=== PATIENT | male | born 1960 | race Caucasian/White ===

== ENCOUNTER 2018-05-16 16:58 | Inpatient (IN) | payer MEDICAID ==
[~2018-05-16] VITALS: Ht 172.7 cm; Wt 74.4 kg
[2018-05-16] MEDS ORDERED: BICT1TAB PO (17:29)
[2018-05-16] MEDS ORDERED: VITAD1000 PO (17:29)
[2018-05-16] MEDS ORDERED: MULT-1272 PO (17:29)
[2018-05-16] MEDS ORDERED: HYDR25TA PO (17:29)
[2018-05-16] MEDS ORDERED: SILD25 PO (17:29)
[2018-05-16] MEDS ORDERED: TRAZ-219 PO (17:29)
[2018-05-16 18:03] LABS: BASOPHILS % (AUTO) 0.9 % (0.0-2.0); EOSINOPHILS % (AUTO) 1.7 % (1.0-6.0); HEMATOCRIT 41.7 % (41-53); HEMOGLOBIN 14.2 g/dL (13.5-17.5); LYMPHOCYTES # (AUTO) 2.2 K/uL (1.0-4.8); LYMPHOCYTES % (AUTO) 46.6 % (22.0-44.0); MEAN CORPUSCULAR VOLUME 100 fL (80-100); MONOCYTES # (AUTO) 0.5 K/uL (0.1-1.0); MONOCYTES % (AUTO) 10.9 % (2.0-9.0); NEUTROPHILS # (AUTO) 1.9 K/uL (1.8-7.7); NEUTROPHILS % (AUTO) 39.9 % (40.0-70.0); PLATELET COUNT (AUTO) 263 K/uL (150-450); RED BLOOD CELL COUNT(AUTO) 4.17 MIL/uL (4.50-5.90); RED CELL DISTRIBUTION WIDTH 12.3 % (11.5-14.5)
[2018-05-16 18:11] LABS: ANION GAP 6 mmol/L (8-16); CALCIUM, TOTAL 8.8 mg/dL (8.8-10.5); CARBON DIOXIDE 32 mmol/L (22-29); CHLORIDE 101 mmol/L (98-107); CREATININE 0.84 mg/dL (0.60-1.30); GLOMERULAR FILTR. RATE CALC > 60 mL/min (>60); GLUCOSE,RANDOM 84 mg/dL (70-110); POTASSIUM 4.2 mmol/L (3.5-5.1); SODIUM SERUM 139 mmol/L (136-145); UREA NITROGEN, BLOOD 11 mg/dL (7-18)
[2018-05-16 18:16] LABS: ALANINE AMINOTRANSFERASE 26 U/L (12-78); ALBUMIN 3.7 g/dL (3.4-5.0); ALKALINE PHOSPHATASE 79 U/L (46-116); ASPARTATE AMINOTRANSFERASE 28 U/L (15-37); BILIRUBIN,TOTAL 0.4 mg/dL (0.1-1.0); TOTAL PROTEIN, SERUM 8.3 g/dL (6.4-8.2)
[2018-05-16] MEDS ORDERED: HALOPERIDOL 5 MG TABLET PO ONE (19:45)
[2018-05-16] MEDS ORDERED: HALOPERIDOL 5 MG TABLET PO PRN (19:45)
[2018-05-16] MEDS ORDERED: LORazepam 2 MG TABLET PO ONE (19:45)
[2018-05-17] VITALS: BP 123/66
[2018-05-17] MEDS ORDERED: PNEUMOCOCCAL VACCINE POLYVALENT 0.5 ML VIAL [PPSV23] IM ONE (02:00)
[2018-05-17] MEDS ORDERED: NICOTINE 14 MG/24 HOUR PATCH TD PRN (07:00)
[2018-05-17] MEDS ORDERED: MAGNESIUM HYDROXIDE SUSPENSION 30 ML UDCUP PO PRN (07:00)
[2018-05-17] MEDS ORDERED: PETROLATUM,WHITE 71 GM JELLY TP PRN (07:00)
[2018-05-17] MEDS ORDERED: ALBUTEROL SULFATE HFA 90 MCG/PUFF 8 GM INHALER IH PRN (07:00)
[2018-05-17] MEDS ORDERED: GuaiFENesin/D-METHORPHAN [SUGAR-FREE] 200-20MG/10 ML SYRUP UDCUP PO PRN (07:00)
[2018-05-17] MEDS ORDERED: DOCUSATE SODIUM 100 MG CAPSULE PO PRN (07:00)
[2018-05-17] MEDS ORDERED: ONDANSETRON HCL 4 MG TABLET PO PRN (07:00)
[2018-05-17] MEDS ORDERED: ACETAMINOPHEN 325 MG TABLET PO PRN (07:00)
[2018-05-17] MEDS ORDERED: LOPERAMIDE HCL 2 MG CAPSULE PO PRN (07:00)
[2018-05-17] MEDS ORDERED: CloNIDine HCL 0.1 MG TABLET PO PRN (07:00)
[2018-05-17] MEDS ORDERED: MAG HYDROX/AL HYDROX/SIMETH ES 30 ML SUSPENSION UDCUP PO PRN (07:00)
[2018-05-17] MEDS ORDERED: IBUPROFEN 400 MG TABLET PO PRN (07:00)
[2018-05-17] MEDS ORDERED: SILDENAFIL CITRATE 25 MG TABLET PO PRN (07:15)
[2018-05-17 08:26] VITALS: BP 155/98
[2018-05-17] MEDS: LORazepam 2 MG TABLET PO PRN ×2 (08:34→17:05)
[2018-05-17] MEDS: TraZODone HCL 50 MG TABLET PO SCH (08:44)
[2018-05-17] MEDS: HYDROCHLOROTHIAZIDE 25 MG TABLET PO SCH (08:44)
[2018-05-17] MEDS: CHOLECALCIFEROL (VIT D3) 1,000 UNITS TABLET PO SCH (08:44)
[2018-05-17] MEDS: MULTIVITAMINS WITH MINERALS, THERAPEUTIC TABLET PO SCH (08:45)
[2018-05-17 09:19] LABS: BASOPHILS % (AUTO) 1.1 % (0.0-2.0); EOSINOPHILS % (AUTO) 2.3 % (1.0-6.0); HEMATOCRIT 42.4 % (41-53); HEMOGLOBIN 14.4 g/dL (13.5-17.5); LYMPHOCYTES # (AUTO) 1.7 K/uL (1.0-4.8); LYMPHOCYTES % (AUTO) 51.6 % (22.0-44.0); MEAN CORPUSCULAR HEMOGLOBIN 34.4 pg (26.0-34.0); MEAN CORPUSCULAR HGB CONC 33.9 G/dL (31.0-37.0); MEAN CORPUSCULAR VOLUME 102 fL (80-100); MONOCYTES # (AUTO) 0.4 K/uL (0.1-1.0); MONOCYTES % (AUTO) 13.4 % (2.0-9.0); NEUTROPHILS % (AUTO) 31.6 % (40.0-70.0); PLATELET COUNT (AUTO) 257 K/uL (150-450); RED BLOOD CELL COUNT(AUTO) 4.18 MIL/uL (4.50-5.90); RED CELL DISTRIBUTION WIDTH 12.3 % (11.5-14.5)
[2018-05-17 09:38] LABS: HEMOGLOBIN A1C 4.6 % (4.5-6.2)
[2018-05-17 09:41] LABS: ALANINE AMINOTRANSFERASE 23 U/L (12-78); ALBUMIN 3.3 g/dL (3.4-5.0); ALKALINE PHOSPHATASE 72 U/L (46-116); ANION GAP 6 mmol/L (8-16); ASPARTATE AMINOTRANSFERASE 23 U/L (15-37); BILIRUBIN,TOTAL 0.4 mg/dL (0.1-1.0); CALCIUM, TOTAL 8.4 mg/dL (8.8-10.5); CARBON DIOXIDE 29 mmol/L (22-29); CHLORIDE 103 mmol/L (98-107); CHOL/HDL RATIO 2.6 (4.2-7.3); CHOLESTEROL 176 mg/dL (131-200); CREATININE 0.84 mg/dL (0.60-1.30); GLOMERULAR FILTR. RATE CALC > 60 mL/min (>60); GLUCOSE,RANDOM 80 mg/dL (70-110); HDL CHOLESTEROL 67 mg/dL (40-60); LDL CHOL (CALC.) 98 mg/dL (0-130); SODIUM SERUM 138 mmol/L (136-145); THYROID STIMULATING HORMONE 0.92 uIU/mL (0.36-3.74); TOTAL PROTEIN, SERUM 7.2 g/dL (6.4-8.2); TRIGLYCERIDES 53 mg/dL (15-150); UREA NITROGEN, BLOOD 10 mg/dL (7-18)
[2018-05-17 09:48] LABS: VALPROIC ACID < 3 mcg/mL (50-100)
[2018-05-17 16:00] VITALS: BP 107/63
[2018-05-17] MEDS: ZIPRASIDONE HCL 40 MG CAPSULE PO SCH (17:05)
[2018-05-18] MEDS: ZIPRASIDONE HCL 40 MG CAPSULE PO SCH ×2 (06:24→17:05)
[2018-05-18 06:28] VITALS: BP 126/86
[2018-05-18 08:02] VITALS: BP 124/79
[2018-05-18] MEDS: CHOLECALCIFEROL (VIT D3) 1,000 UNITS TABLET PO SCH (08:17)
[2018-05-18] MEDS: HYDROCHLOROTHIAZIDE 25 MG TABLET PO SCH (08:17)
[2018-05-18] MEDS: MULTIVITAMINS WITH MINERALS, THERAPEUTIC TABLET PO SCH (08:17)
[2018-05-18] MEDS: TraZODone HCL 50 MG TABLET PO SCH (08:17)
[2018-05-18] MEDS ORDERED: VENLAFAXINE HCL 75 MG ER CAPSULE PO ONE (09:00)
[2018-05-18 16:00] VITALS: BP 135/85
[2018-05-19 06:16] VITALS: BP 132/83
[2018-05-19] MEDS: ZIPRASIDONE HCL 40 MG CAPSULE PO SCH (06:24)
[2018-05-19] MEDS: TraZODone HCL 50 MG TABLET PO SCH (08:03)
[2018-05-19] MEDS: HYDROCHLOROTHIAZIDE 25 MG TABLET PO SCH (08:03)
[2018-05-19] MEDS: CHOLECALCIFEROL (VIT D3) 1,000 UNITS TABLET PO SCH (08:03)
[2018-05-19] MEDS: MULTIVITAMINS WITH MINERALS, THERAPEUTIC TABLET PO SCH (08:03)
[2018-05-19 08:39] VITALS: BP 137/85
[2018-05-19] MEDS: [UNRECOGNIZED DRUG - OTHER] PO SCH (11:18)
[2018-05-19] MEDS: VENLAFAXINE HCL 75 MG ER CAPSULE PO SCH (11:32)
[2018-05-19 16:24] VITALS: BP 129/93
[2018-05-19] MEDS ORDERED: ZIPRASIDONE HCL 60 MG CAPSULE PO SCH (17:00)
[2018-05-19] MEDS: LORazepam 2 MG TABLET PO PRN (21:26)
[2018-05-20 01:00] VITALS: BP 124/89
[2018-05-20] MEDS ORDERED: ZIPRASIDONE HCL 20 MG CAPSULE PO SCH (07:00)
[2018-05-20 08:01] VITALS: BP 121/72
[2018-05-20] MEDS: MULTIVITAMINS WITH MINERALS, THERAPEUTIC TABLET PO SCH (08:16)
[2018-05-20] MEDS: HYDROCHLOROTHIAZIDE 25 MG TABLET PO SCH (08:16)
[2018-05-20] MEDS: VENLAFAXINE HCL 75 MG ER CAPSULE PO SCH (08:16)
[2018-05-20] MEDS: [UNRECOGNIZED DRUG - OTHER] PO SCH (08:16)
[2018-05-20] MEDS: FOLIC ACID 1 MG TABLET PO SCH (08:16)
[2018-05-20] MEDS: CHOLECALCIFEROL (VIT D3) 1,000 UNITS TABLET PO SCH (08:16)
[2018-05-20] MEDS: TraZODone HCL 50 MG TABLET PO SCH (08:17)
[2018-05-20 16:31] VITALS: BP 140/87
[2018-05-20] MEDS: ZIPRASIDONE HCL 60 MG CAPSULE PO SCH (16:42)
[2018-05-21 05:34] VITALS: BP 135/96
[2018-05-21] MEDS: ZIPRASIDONE HCL 60 MG CAPSULE PO SCH ×2 (06:26→16:45)
[2018-05-21 08:02] VITALS: BP 132/89
[2018-05-21] MEDS: TraZODone HCL 50 MG TABLET PO SCH (09:00)
[2018-05-21] MEDS: [UNRECOGNIZED DRUG - OTHER] PO SCH (09:09)
[2018-05-21] MEDS: MULTIVITAMINS WITH MINERALS, THERAPEUTIC TABLET PO SCH (09:09)
[2018-05-21] MEDS: HYDROCHLOROTHIAZIDE 25 MG TABLET PO SCH (09:09)
[2018-05-21] MEDS: CHOLECALCIFEROL (VIT D3) 1,000 UNITS TABLET PO SCH (09:09)
[2018-05-21] MEDS: VENLAFAXINE HCL 75 MG ER CAPSULE PO SCH (09:09)
[2018-05-21] MEDS: FOLIC ACID 1 MG TABLET PO SCH (09:09)
[2018-05-21 16:00] VITALS: BP 140/84
[2018-05-21] MEDS: ZOLPIDEM TARTRATE 10 MG TABLET PO PRN (21:18)
[2018-05-22] MEDS: LORazepam 2 MG TABLET PO PRN ×2 (03:48→17:13)
[2018-05-22 03:51] VITALS: BP 171/101
[2018-05-22 03:52] VITALS: BP 150/107
[2018-05-22 04:45] VITALS: BP 127/84
[2018-05-22] MEDS: ZIPRASIDONE HCL 60 MG CAPSULE PO SCH ×2 (06:39→17:13)
[2018-05-22] MEDS: TraZODone HCL 50 MG TABLET PO SCH (08:10)
[2018-05-22] MEDS: CHOLECALCIFEROL (VIT D3) 1,000 UNITS TABLET PO SCH (08:10)
[2018-05-22] MEDS: [UNRECOGNIZED DRUG - OTHER] PO SCH (08:10)
[2018-05-22] MEDS: VENLAFAXINE HCL 75 MG ER CAPSULE PO SCH (08:10)
[2018-05-22] MEDS: FOLIC ACID 1 MG TABLET PO SCH (08:10)
[2018-05-22] MEDS: HYDROCHLOROTHIAZIDE 25 MG TABLET PO SCH (08:10)
[2018-05-22] MEDS: MULTIVITAMINS WITH MINERALS, THERAPEUTIC TABLET PO SCH (08:10)
[2018-05-22 08:11] VITALS: BP 112/69
[2018-05-22 15:45] VITALS: BP 124/78
[2018-05-22 16:00] VITALS: BP 124/78
[2018-05-22] MEDS ORDERED: FOLI1 PO (20:32)
[2018-05-22] MEDS ORDERED: MULT-1239 PO (20:32)
[2018-05-22] MEDS ORDERED: BICT1TAB PO (20:32)
[2018-05-22] MEDS ORDERED: VITAD1000 PO (20:32)
[2018-05-22] MEDS ORDERED: HYDR25TA PO (20:32)
[2018-05-22] MEDS ORDERED: VENL-67 PO (20:32)
[2018-05-22] MEDS ORDERED: ZIPR60CA2 PO (20:32)
[2018-05-22] MEDS ORDERED: TRAZ-219 PO (20:32)
[2018-05-22] MEDS: ZOLPIDEM TARTRATE 10 MG TABLET PO PRN (20:45)
[2018-05-23] MEDS: LORazepam 2 MG TABLET PO PRN (03:51)
[2018-05-23 03:57] VITALS: BP 147/75
[2018-05-23] MEDS: ZIPRASIDONE HCL 60 MG CAPSULE PO SCH (06:32)
== END 2018-05-23 07:15 | disposition home or self-care (01) | DRG 750 ==
LOC: EMS 16:59 → B3A 20:00
PROVIDERS: ADMIT Psychiatry & Neurology Psychiatry; ATTEND Psychiatry & Neurology Psychiatry
DX: F25.1 Schizoaffective disorder, depressive type (principal); R45.851 Suicidal ideations; Z59.0 Homelessness; F41.9 Anxiety disorder, unspecified; I10 Essential (primary) hypertension; E55.9 Vitamin D deficiency, unspecified; Z20.6 Contact with and (suspected) exposure to human immunodeficiency virus [HIV]; D72.819 Decreased white blood cell count, unspecified; R10.13 Epigastric pain; N53.9 Unspecified male sexual dysfunction; R45.87 Impulsiveness; R45.84 Anhedonia; F19.90 Other psychoactive substance use, unspecified, uncomplicated; Z91.5 Personal history of self-harm; Z88.1 Allergy status to other antibiotic agents; Z88.8 Allergy status to other drugs, medicaments and biological substances
CPT/HCPCS: 83036; 84443; 90686; 90732; G0480